=== PATIENT | female | born 1965 | race Caucasian/White ===

== ENCOUNTER → 2019-12-13 | Day surgery (SDC) | payer OTHER ==
[~2019-12-13] MED LIST: CRESTOR10 MG PO; CYMBALTA30 MG PO; FENTANYL CITRATE/PF 100MCG/2 ML INJ ONE; LUNESTA3 MG PO; MAGNESIUM PO; MIDAZOLAM HCL 2 MG/2 ML VIAL ONE; OR PHACO EYE KIT ONE; PANTOPRAZOLE SO40 MG PO; PREOP PHACO EYE KIT ONE; VALSARTAN-HCTZ1 EAC2 PO; VITAMIN D35000 UNI2 PO
[2019-12-13 13:30] VITALS: BP 140/86
== END | disposition home or self-care (01) ==
LOC: OR 10:41
PROVIDERS: ATTEND Ophthalmology
DX: H25.11 Age-related nuclear cataract, right eye (principal); I10 Essential (primary) hypertension; E78.00 Pure hypercholesterolemia, unspecified; F32.9 Major depressive disorder, single episode, unspecified; F41.9 Anxiety disorder, unspecified
CPT/HCPCS: 66984; J2250; J3010

== ENCOUNTER → 2020-02-28 | Day surgery (SDC) | payer OTHER ==
--- OUTSIDE RECORDS SUMMARY | 2020-02-28 10:17 | XMS REPORT | Clinical Summary ---
Author Author Sebastien [facility] Organization [facility] Address Unknown Phone Unavailable Care Team Providers Care Segment Block Layer Name Role Phone Iveth Medel MD PCP Allergies Comments Active Allergy Reactions Severity Noted Date No Known Drug Allergies 02/29/2016 Medications End Date Status Medication Sig Dispensed Refills Start Date Active cholecalciferol, vitamin Vitamin D3 0 10/18 D3, 5,000 unit tablet 5,000 unit 2 tablet Active aspirin (ECOTRIN) 81 MG Take 81 mg by 0 enteric coated tablet mouth daily. Active QNASL 80 mcg/actuation 2 sprays by 29.1 g 3 HFA aerosol inhaler Each Nare 7 route once daily. Active PROAIR RESPICLICK 90 INHALE 1 TO 2 2 each 0 mcg/actuation aerosol PUFFS EVERY 6 7 powdr breath activated HOURS NEEDED DIRECTED Active pantoprazole (PROTONIX) TAKE 1 TABLET 90 tablet 2 40 MG EC tablet (40 MG TOTAL) 9 BY MOUTH ONCE DAILY. Active DULoxetine (CYMBALTA) 60 TAKE 1 90 capsule 1 1 MG capsule CAPSULE BY 9 MOUTH EVERY MORNING Active valsartan-hydrochlorothia TAKE 1 TABLET 90 tablet 1 zide (DIOVAN-HCT) BY MOUTH 0 160-12.5 mg per tablet EVERY DAY Active rosuvastatin (CRESTOR) 10 TAKE 1 TABLET 90 tablet 1 MG tablet BY MOUTH 0 EVERY DAY 01/08/2021 Active buPROPion XL (Wellbutrin Take 1 tablet 30 tablet 5 XL) 150 MG 24 hr tablet (150 mg 0 total) by mouth daily. 06/03/2019 Discontinued metFORMIN (GLUMETZA) 1000 TAKE 2 0 MG (MOD) 24 hr tablet TABLETS BY MOUTH EVERY DAY 04/03/2019 Discontinued (Reorder) valsartan-hydrochlorothia TAKE 1 TABLET 90 tablet 1 zide (DIOVAN-HCT) 320-25 BY MOUTH ONCE 8 mg per tablet DAILY. 03/15/2019 Discontinued (Reorder) rosuvastatin (CRESTOR) 10 Take 1 tablet 90 tablet 0 MG tablet (10 mg total) 9 by mouth once daily. 05/26/2019 Discontinued (Reorder) DULoxetine (CYMBALTA) 60 TAKE 1 90 capsule 0 0 MG capsule CAPSULE BY 9 MOUTH EVERY MORNING 05/26/2019 Discontinued (Reorder) pantoprazole (PROTONIX) TAKE 1 TABLET 90 tablet 0 40 MG EC tablet (40 MG TOTAL) 9 BY MOUTH ONCE DAILY. 06/14/2019 Discontinued (Reorder) rosuvastatin (CRESTOR) 10 TAKE 1 TABLET 90 tablet 0 MG tablet BY MOUTH 9 EVERY DAY 04/20/2019 eszopiclone (LUNESTA) 3 TAKE 1 TABLET 30 tablet 2 mg tablet BY MOUTH 9 EVERYDAY AT BEDTIME 06/03/2019 Discontinued valsartan-hydrochlorothia TAKE 1 TABLET 90 tablet 1 zide (DIOVAN-HCT) 320-25 BY MOUTH ONCE 9 mg per tablet DAILY. 08/22/2019 Discontinued (Reorder) pantoprazole (PROTONIX) TAKE 1 TABLET 90 tablet 0 40 MG EC tablet (40 MG TOTAL) 9 BY MOUTH ONCE DAILY. 08/30/2019 Discontinued (Reorder) DULoxetine (CYMBALTA) 60 TAKE 1 90 capsule 0 0 MG capsule CAPSULE BY 9 MOUTH EVERY MORNING 06/03/2019 Discontinued (Reorder) eszopiclone (LUNESTA) 3 TAKE 1 TABLET 2 mg tablet BY MOUTH 9 EVERYDAY AT BEDTIME 12/12/2019 Discontinued valsartan-hydrochlorothia Take 1 tablet 90 tablet 1 zide (DIOVAN-HCT) by mouth 9 160-12.5 mg per tablet daily. 07/04/2019 eszopiclone (LUNESTA) 3 TAKE 1 TABLET 30 tablet 3 mg tablet BY MOUTH 9 EVERYDAY AT BEDTIME 12/12/2019 Discontinued rosuvastatin (CRESTOR) 10 TAKE 1 TABLET 90 tablet 1 06/14/201 MG tablet BY MOUTH 9 EVERY DAY 10/26/2019 eszopiclone (LUNESTA) 3 TAKE 1 TABLET 30 tablet 2 201 mg tablet BY MOUTH 9 EVERY AT BEDTIME. 01/22/2020 eszopiclone (LUNESTA) 3 TAKE 1 TABLET 30 tablet 2 202 mg tablet BY MOUTH 0 EVERY AT BEDTIME. Active Problems Problem Noted Date Anxiety state 02/29/2016 Disorder of vitamin B12 02/29/2016 Excess or deficiency of vitamin D 02/29/2016 Hypercholesteremia 02/29/2016 Hyperglycemia 02/29/2016 Benign essential HTN 02/08/2013 Depression 12/17/2011 Encounters Care Team Description Date Type Specialty Jeffery Corea III, MD Trigger little finger of left hand (Prim radha Dx) 01/10/2020 Office Visit Orthopedic Surgery Iveth Medel MD Depression with anxiety (Primary Dx); Hand pain, left 01/09/2020 Telemedicine Family Medicine 01/09/2020 Travel Iveth Medel MD 12/23/2019 Refill Family Iveth Be MD 12/11/2019 Refill Family Iveth Be MD 12/07/2019 Orders Only Family Medicine Iveth Medel MD Cataract of right eye, unspecified catar act type (Primary Dx); Pre-op examination; Encounter for general health examination; Benign essential HTN; Hypercholesteremia; Anxiety state 12/06/2019 Office Visit Family Iveth Be MD 09/25/2019 Refill Family Medicine Iveth Medel MD 08/30/2019 Refill Family Iveth Be MD 08/22/2019 Refill Family Iveth Be MD 06/14/2019 Refill Family Iveth Be MD Encounter for general health examination (Primary Dx) 06/03/2019 Office Visit Iveth Thomson MD 05/26/2019 Refill Family Iveth Be MD 04/03/2019 Refill Family Iveth Be MD 03/22/2019 Refill Family Iveth Be., MD 03/19/2019 Refill Family Medicine Iveth Medel MD 03/15/2019 Refill Family Medicine after 02/27/2019 Family History Medical History Relation Name Comments Sleep apnea Brother Hyperlipidemia Father Hypertension Father Breast cancer Maternal Grandmother Breast cancer Mother Pat Cancer Mother Pat from b reast cancer 03/2002 age 56 Relation Name Status Comments Brother Father Maternal Grandmother Mother Pat Social History Date Tobacco Use Types Packs/Day Years Used Never Smoker 0 0 Smokeless Tobacco: Never Used Drinks/Week oz/Week Comments Alcohol Use No Sex Assigned at Date Recorded Female 01/09/2020 5:47 PM CDT Industry Job Start Date Occupation Not on file Not on file Not on file Travel End Travel History Travel Start No recent travel history available. Last Filed Vital Signs Reading Time Taken Comments Vital Sign 118/74 12/06/2019 10:29 AM [employer] Blood Pressure 85 12/06/2019 10:29 AM [employer] Pulse - - Temperature 16 12/06/2019 10:29 AM [employer] Respiratory Rate 98% 12/06/2019 10:29 AM [employer]PER[employer] Oxygen Saturation - - Inhaled Oxygen Concentration 83.5 kg (184 lb) 01/10/2020 9:46 AM CDT Weight 163.8 cm (5' 4.5") 01/10/2020 9:46 AM CDT Height 31.1 01/10/2020 9:46 AM CDT Body Mass Index Plan of Treatment Health Maintenance Due Date Last Done Comments CERVICAL CANCER SCREENING 1987 BREAST CANCER SCREENING 2016 04/10/2014, 04/04/2014, 03/20/2014, Additional history exists COLONOSCOPY SCREENING 2016 SHINGLES VACCINES (#1) 2016 INFLUENZA VACCINE 05/12/2020 Procedures Comments Procedure Name Priority Date/Time Associated Diag nosis PA INJECT TENDON Routine 01/10/2020 Trigger littl e finger of SHEATH/LIGAMENT 9:40 AM CDT left hand PT AND PTT Routine 12/07/2019 6:34 AM [employer] ECG 12-LEAD Routine 12/06/2019 Pre-op examinat ion 11:33 AM [employer] O[employer] CBC WITH PLATELET AND Routine 12/06/2019 Pre-op e xamination DIFFERENTIAL 10:51 AM [employer] Encounter for gener al health examination FERRITIN LEVEL Routine 06/03/2019 Encounter for g eneral 9:32 AM CDT health examination VITAMIN B12 LEVEL Routine 06/03/2019 Encounter fo r general 9:32 AM CDT health examination VITAMIN D 25 HYDROXY Routine 06/03/2019 Encounter for general LEVEL 9:32 AM CDT health examination THYROID STIMULATING Routine 06/03/2019 Encounter for general HORMONE 9:32 AM CDT health examination LIPID PANEL Routine 06/03/2019 Encounter for g eneral 9:32 AM CDT health examination HEMOGLOBIN A1C Routine 06/03/2019 Encounter for g eneral 9:32 AM CDT health examination COMPREHENSIVE METABOLIC Routine 06/03/[address] for general PANEL 9:32 AM CDT health examination CBC WITH PLATELET AND Routine 06/03/2019 Encounte r for general DIFFERENTIAL 9:32 AM CDT health examination after 02/27/2019 Results * Hand/Upper Extremity Injection/Arthrocentesis: L small finger (01/10/2020 9:40 AM CDT) Narrative Performed At Jeffery Corea III, MD 2019 10:51 AM Hand/Upper Extremity Injection/Arthroce ntesis: L small finger Date/Time: 01/10/2020 10:50 AM Consent given by: patient Site marked: site marked Timeout: Immediately prior to procedure a time out was called to verify the correct patient, procedure, equipme nt, media production support manager and site/side marked as required Supporting Documentation Indications: pain and therapeutic Procedure Details Site: L small finger Location: - Small flexor pulleys: Volar aspect. Preparation: Patient was prepped and dr leticia in the usual sterile fashion Left side: Needle size: 25 G Left small finger medications administe red: 40 mg methylPREDNISolone acetate 40 mg/mL; 0.5 mL lidocaine 10 m g/mL (1 %) Patient tolerance: patient tolerated th e procedure well with no immediate complications (Band aid was applied) Injection Type: tendon sheathPlatelet R ich Plasma Used: no PRP Used Fluoroscopic Needle Guidance Used: no f luoroscopic needle guidance * PT and PTT (12/07/2019 6:34 AM DEHYDRATION PLANT OPERATOR) PTT 30 22 - 34 sec [facility] Comment: DIAGNOSTICS This test has not been [place] validated for monitoring unfractionated heparin therapy. For testing that is validated for this type of therapy, please refer to the Heparin Anti-Xa assay (test code 59142). For additional information, please refer to http://education.Sense of Skin.Sureline Systems/faq/RIW538 (This link is being provided for informational/educational purposes only.) INR 0.9 [facility] Comment: DIAGNOSTICS Reference Range [place] 0.9-1.1 Moderate-intensity Warfarin Therapy 2.0-3.0 Higher-intensity Warfarin Therapy 3.0-4.0 Prothrombin 9.7 9.0 - 11.5 sec [facility] time Comment: DIAGNOSTICS NO COLLECTION DATE RECEIVED. [place] WE HAVE USED THE DATE THE SPECIMEN WAS RECEIVED BY THIS LABORATORY THE COLLECTION DATE. IF THIS IS INCORRECT, PLEASE CONTACT CLIENT SERVICES. PHONE NUMBER: [phone] Specimen Narrative Performed At FASTING: UNKNOWN [facility] Resulting Agency Comment Performing Organization Information: Site ID: [id number] Name: [facility] Address: [address] [place] [id number] Director: Johny Burnett Performing Organization Address [facility] one Number [facility] [place] [address] [place] [phone] * ECG 12 lead (12/06/2019 11:33 AM DEHYDRATION PLANT OPERATOR) Ventricular 77 [facility] MUSE rate Atrial rate 77 [facility] M[facility] PA interval 144 [facility] M[facility] QRSD interval 104 [facility] M[facility] QT interval 398 [facility] MUSE QTC interval 450 [facility] M[facility] P axis 1 35 [facility] MUSE QRS axis 1 22 [facility] MUSE T wave axis 52 [facility] MUSE EKG impression Normal sinus rhythm-Possible HM MUSE Inferior infarct , age undetermined-Abnormal ECG-No previous ECGs available- Specimen Narrative Performed At This result has an attachment that is n ot available. Performing Organization Address [facility]/State/Zipcode Ph one Number [facility] [address] [place] [address] * CBC with platelet and differential (12/06/2019 10:51 AM DEHYDRATION PLANT OPERATOR) Only the most recent of 2 results within the time period is included. Pathologist [facility] [place] WBC 7.9 3.8 - 10.8 [facility] Thousand/uL [facility] [place] RBC 4.89 3.80 - 5.10 [facility] Million/uL [facility] [place] HGB 13.3 11.7 - 15.5 g/dL [facility] [place] HCT 41.1 35.0 - 45.0 % [facility] [place] MCV 84.0 80.0 - 100.0 fL [facility] [place] MCH 27.2 27.0 - 33.0 pg [facility] [place] MCHC 32.4 32.0 - 36.0 g/dL [facility] [place] RDW 13.6 11.0 - 15.0 % [facility] [place] Platelet count 453 (H) 140 - 400 [facility] Thousand/uL [facility] [place] MPV 9.6 7.5 - 12.5 fL [facility] [place] Neutrophils, 5,293 1,500 - 7,800 [facility] absolute cells/uL [facility] [place] Lymphocytes, 1,959 850 - 3,900 cells/uL [facility] absolute [facility] [place] Monocytes, 529 200 - 950 cells/uL [facility] absolute [facility] [place] Eosinophils, 71 15 - 500 cells/uL [facility] absolute [facility] [place] Basophils, 47 0 - 200 cells/uL [facility] absolute [facility] [place] Neutrophils 67 % [facility] [place] Lymphocytes 24.8 % [facility] [place] Monocytes 6.7 % [facility] [place] Eosinophils 0.9 % [facility] [place] Basophils + RC 0.6 % [facility] [place] Specimen Resulting Agency Comment Performing Organization Information: Site ID: [id number] Name: [facility] Address: [address] [place] [id number] Director: Johny Burnett Performing Organization Address City/State/Zipcode Ph one Number [facility] [address] [phone] * Vitamin D 25 hydroxy level (06/03/2019 9:32 AM CDT) Pathologist [facility] [place] Vitamin D, 63 30 - 100 ng/mL [facility] 25-hydroxy Comment: DIAGNOSTICS Vitamin D Status [place] 25-OH Vitamin D: Deficiency: <20 ng/mL Insufficiency: 20 - 29 ng/mL Optimal: > or = 30 ng/mL For 25-OH Vitamin D testing on patients on D2-supplementation and patients for whom quantitation of D2 and D3 fractions is required, the QuestAssureD(TM) 25-OH VIT D, (D2,D3), LC/MS/MS is recommended: order code 88241 (patients >2yrs). For more information on this test, go to: http://education.Shoulder Tap/faq/YXB171 (This link is being provided for informational/educational purposes only.) Specimen Resulting Agency Comment Performing Organization Information: Site ID: [id number] Name: [facility] Address: [address] [place] [id number] Director: Johny Burnett Performing Organization Address [facility] one Number [employer] [place] [phone] * Thyroid stimulating hormone (06/03/2019 9:32 AM CDT) TSH 1.34 mIU/L [facility] Comment: DIAGNOSTICS Reference Range T[place] > or = 20 Years 0.40-4.50 Ranges First trimester 0.26-2.66 Second trimester 0.55-2.73 Third trimester 0.43-2.91 Specimen Resulting Agency Comment Performing Organization Information: Site ID: [id number] Name: [facility] Address: [address] [place] [phone] Director: Johny Burnett Performing Organization Address [facility] one Number [employer] [place] [phone] * Hemoglobin A1c (06/03/2019 9:32 AM CDT) Hemoglobin A1C 5.4 <5.7 % of total Hgb [facility] Comment: DIAGNOSTICS For the purpose of screening [place] for the presence of diabetes: <5.7% Consistent with the absence of diabetes 5.7-6.4% Consistent with increased risk for diabetes (prediabetes) > or =6.5% Consistent with diabetes This assay result is consistent with a decreased risk of diabetes. Currently, no consensus exists regarding use of hemoglobin A1c for diagnosis of diabetes in children. According to [place] Diabetes Association (ADA) guidelines, hemoglobin A1c <7.0% represents optimal control in non- diabetic patients. Different metrics may apply to specific patient populations. Standards of Medical Care in Diabetes(ADA). Specimen Resulting Agency Comment Performing Organization Information: Site ID: [id number] Name: [facility] Address: [address] [place] [phone] Director: Johny Burnett Performing Organization Address [facility] one Number [facility] [place] [address] [place] [address] 72 * Ferritin level (06/03/2019 9:32 AM CDT) Ferritin level 11 (L) 16 - 232 ng/mL [facility] [place] Specimen Resulting Agency Comment Performing Organization Information: Site ID: [facility]: [facility] Address: [address] [place] [phone] Director: Johny Burnett Performing Organization Address [facility] one Number [facility] [place] [address] [place] [address] 72 * Vitamin B12 level (06/03/2019 9:32 AM CDT) Vitamin B12 >2000 (H) 200 - 1100 pg/mL [facility] [place] Specimen Resulting Agency Comment Performing Organization Information: Site ID: [id number] [facility]: [facility] Address: [address] [place] [phone] Director: Johny Burnett Performing Organization Address [facility] one Number [facility] [place] [address] [place] [address] 72 * Lipid panel (06/03/2019 9:32 AM CDT) Cholesterol, 188 <200 mg/dL [facility] total [facility] [place] HDL cholesterol 50 (L) >50 mg/dL [facility] [place] Triglycerides 107 <150 mg/dL [facility] [place] LDL cholesterol 117 (H) mg/dL (calc) [facility] calculated Comment: DIAGNOSTICS Reference range: <100 [place] Desirable range <100 mg/dL for primary prevention; <70 mg/dL for patients with CHD or diabetic patients with > or = 2 CHD risk factors. LDL-C is now calculated using the Nick calculation, which is a validated novel method providing better accuracy than the Friedewald equation in the estimation of LDL-C. Kolton SS et al. GRAEME. 2013;310(19): 9379-6967 (http://education.Hark.com/faq/BJE923) Cholesterol/HDL 3.8 <5.0 (calc) [facility] ratio [facility]AGNOSTICS [place] Non-HDL 138 (H) <130 mg/dL (calc) [facility] cholesterol Comment: DIAGNOSTICS For patients with diabetes [place] plus 1 major ASCVD risk factor, treating to a non-HDL-C goal of <100 mg/dL (LDL-C of <70 mg/dL) is considered a therapeutic option. Specimen Resulting Agency Comment Performing Organization Information: Site ID: [id number] Name: [facility] Address: [address] [place] [phone] Director: Johny Burnett Performing Organization Address City/State/Zipcode Ph one Number [facility] [place] [address] [place] [phone] * Comprehensive metabolic panel (06/03/2019 9:32 AM CDT) Glucose 89 65 - 99 mg/dL [facility] Comment: DIAGNOSTICS Fasting [place] reference interval BUN 18 7 - 25 mg/dL [facility] [place] Creatinine 0.77 0.50 - 1.05 mg/dL [facility] Comment: DIAGNOSTICS For patients >49 years of age, [place] the reference limit for Creatinine is approximately 13% higher for people identified as -[place]. EGFR Non-Afr. 88 > OR = 60 [facility] [place] mL/min/1.73m2 [facility] EGFR 102 > OR = 60 [facility] [place] mL/min/1.73m2 [facility] BUN/creatinine NOT APPLICABLE 6 - 22 (calc) [facility] ratio [facility] [place] Sodium 139 135 - 146 mmol/L [facility] [place] Potassium 4.1 3.5 - 5.3 mmol/L [facility] [place] Chloride 99 98 - 110 mmol/L [facility] [place] CO2 27 20 - 32 mmol/L [facility] [place] Calcium 9.9 8.6 - 10.4 mg/dL [facility] [place] Protein 7.0 6.1 - 8.1 g/dL [facility] [place] Albumin, S 4.5 3.6 - 5.1 g/dL [facility] [place] Globulin, total 2.5 1.9 - 3.7 g/dL [facility] (calc) [facility] [place] Albumin/globuli 1.8 1.0 - 2.5 (calc) [facility] n ratio [facility]AGNOSTICS [place] Total bilirubin 0.3 0.2 - 1.2 mg/dL [facility] [place] Alkaline 73 33 - 130 U/L [facility] phosphatase [facility] [place] AST 16 10 - 35 U/L [facility] [place] ALT 21 6 - 29 U/L [facility] [place] Specimen Resulting Agency Comment Performing Organization Information: Site ID: [id number]: [facility] Address: [address] [place] [phone] Director: Johny Burnett Performing Organization Address City/State/Zipcode Ph one Number [facility] [place] [address] [place] [phone] 72 after 02/27/2019 Insurance Type Payer Benefit Subscriber ID Effective Phone Address Plan / Dates Group POS AETNA AETNA xxxxxxxxxx [id number] [facility] POS Advance Directives For more information, please contact: [phone] Patient Lead Former Explanation Type Date Recorded Advance Directives, Living Will and Medical Power of Carpenter Mate
--- OUTSIDE RECORDS SUMMARY | 2020-02-28 10:18 | XMS REPORT ---
Author Author [facility] t Organization [facility] Address [address] [place] [address] Phone Unavailable Care Team Providers Care Damper Fitter Name Role Phone Yarely Medel MD PCP Nahomy GILES, Chase Jeffery Attphys Yarely Medel MD Attphys Payers Payer Name Policy Type Policy Number Effective Date Expiration Date S deonna ZAMORATNAJARAD DRISCOLL [facility] [id number] xxxxxxxxxx 2016 00:00:00 Sebastien Holman Problems Condition Name Condition Details Condition Category Status Onset Date Resolution Date Last Treatment Date Treating Clinician Comments Source Anxiety state Anxiety state Disease Active 2016-02-29 00:00:00 Sebastien Holman 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 Family History Family Member Diagnosis Comments Start Date Stop Date Source Natural brother Sleep apnea Sebastien Holman Natural father Hyperlipidemia [place] Natural father Hypertension Sebastien Holman Maternal grandmother Breast cancer [place] Natural mother Breast cancer Sebastien Holman Natural mother Cancer [facility] Social History Social Habit Start Date Stop Date Quantity Comments Source Sex Assigned At [place] [facility] Alcohol intake 2020-01-10 00:00:00 2020-01-10 00:00:00 Current non-drinker of alcohol (finding) Sebastien Holman Smoking Status Start Date Stop Date Source Never smoker Sebastien marshall Medications Ordered Medication Name Filled Medication Name Start Date Stop Da te Current Medication? Ordering Clinician Indication Dosage Frequency Signature (SIG) Comments Components Source buPROPion XL (Wellbutrin XL) 150 MG 24 hr tablet 2020-01-09 00:00:00 2021-01-09 04:59:00 Yes 150mg QD Take 1 tablet (150 mg total) by mouth daily. Sebastien Holman eszopiclone (LUNESTA) 3 mg tablet 2019-12-23 00:00:00 2019 04:59:00 No TAKE 1 TABLET BY MOUTH EVERY AT BEDTIME. Sebastien Holman valsartan-hydrochlorothiazide (DIOVAN-HCT) 160-12.5 mg per t ablet 2019-12-12 00:00:00 Yes TAKE 1 TABLET BY MOUTH EVERY DAY Sebastien Holman rosuvastatin (CRESTOR) 10 MG tablet 2019-12-12 00:00:00 Yes TAKE 1 TABLET BY MOUTH EVERY DAY Sebastien helton eszopiclone (LUNESTA) 3 mg tablet 2019-09-26 00:00:00 2019 05:59:00 No TAKE 1 TABLET BY MOUTH EVERY AT BEDTIME. Sebastien Holman DULoxetine (CYMBALTA) 60 MG capsule 2019-08-30 00:00:00 Yes TAKE 1 CAPSULE BY MOUTH EVERY MORNING Sebastien Roy ethmadisyn pantoprazole (PROTONIX) 40 MG EC tablet 2019-08-22 00:00:00 Yes 40mg QD TAKE 1 TABLET (40 MG TOTAL) BY MOUTH ONCE DAILY. Sebastien Holman rosuvastatin (CRESTOR) 10 MG tablet 2019-06-14 00:00:0 0 2019-12-12 00:00:00 No TAKE 1 TABLET BY MOUTH EVERY DAY Sebastien Holman metFORMIN (GLUMETZA) 1000 MG (MOD) 24 hr tablet 2019-06-03 14:19:47 2019-06-03 00:00:00 No TAKE 2 TABLETS BY MOUTH EVERY D ESAU Holman valsartan-hydrochlorothiazide (DIOVAN-HCT) 160-12.5 mg per t ablet 2019-06-03 00:00:00 2019-12-12 00:00:00 No 1{tbl} QD Take 1 tablet by mouth daily. Sebastien Holman eszopiclone (LUNESTA) 3 mg tablet 2019-06-03 00:00:00 2018 04:59:00 No TAKE 1 TABLET BY MOUTH EVERYDAY AT [facility] Sebastien Holman DULoxetine (CYMBALTA) 60 MG capsule 2019-05-26 00:00:0 0 2019-08-30 00:00:00 No TAKE 1 CAPSULE BY MOUTH EVERY MORNING Sebastien Holman pantoprazole (PROTONIX) 40 MG EC tablet 00:00:00 2019-08-22 00:00:00 No 40mg QD TAKE 1 TABLET (40 MG TOTAL) BY MOUTH ONCE DAILY. Sebastien Holman eszopiclone (LUNESTA) 3 mg tablet 2019-05-24 00:00:00 2018 00:00:00 No TAKE 1 TABLET BY MOUTH EVERYDAY AT [facility] Sebastien Holman valsartan-hydrochlorothiazide (DIOVAN-HCT) 320-25 mg per tab let 2019-04-04 00:00:00 2019-06-03 00:00:00 No 1{tbl} QD TAKE 1 TABLET BY MOUTH ONCE DAILY. Sebastien Holman eszopiclone (LUNESTA) 3 mg tablet 2019-03-21 00:00:00 2018 04:59:00 No TAKE 1 TABLET BY MOUTH EVERYDAY AT [facility] Sebastien Holman rosuvastatin (CRESTOR) 10 MG tablet 2019-03-15 00:00:0 0 2019-06-14 00:00:00 No TAKE 1 TABLET BY MOUTH EVERY DAY Sebastien Holman DULoxetine (CYMBALTA) 60 MG capsule 2019-02-24 00:00:0 0 2019-05-26 00:00:00 No TAKE 1 CAPSULE BY MOUTH EVERY MORNING Sebastien Holman pantoprazole (PROTONIX) 40 MG EC tablet 00:00:00 2019-05-26 00:00:00 No 40mg QD TAKE 1 TABLET (40 MG TOTAL) BY MOUTH ONCE DAILY. Sebastien Homlan rosuvastatin (CRESTOR) 10 MG tablet 2018-12-22 00:00:0 0 2019-03-15 00:00:00 No 10mg QD Take 1 tablet (10 mg total) by mouth onc e daily. Sebastien Holman valsartan-hydrochlorothiazide (DIOVAN-HCT) 320-25 mg per tab let 2018-10-01 00:00:00 2019-04-03 00:00:00 No 1{tbl} QD TAKE 1 TABLET BY MOUTH ONCE DAILY. Sebastien Holman QNASL 80 mcg/actuation HFA aerosol inhaler 2017-06-04 00:00:00 Yes 2{spray} QD 2 sprays by Each Nare route once daily. Sebastien Holman PROAIR RESPICLICK 90 mcg/actuation aerosol powdr breath acti vated 2017-06-04 00:00:00 Yes INHALE 1 TO 2 PUFFS ALEX RY 6 HOURS NEEDED DIRECTED Sebastien Holman aspirin (ECOTRIN) 81 MG enteric coated tablet 2016-06-05 14:01:2 6 Yes 81mg QD Take 81 mg by mouth daily. H sharlene Holman cholecalciferol, vitamin D3, 5,000 unit tablet 2011-10-18 00:00: 00 Yes Vitamin D3 5,000 unit tablet Sebastien Holman Vital Signs Vital Name Observation Time Observation Value Comments Source Body height 2020-01-10 14:46:00 163.8 cm Sebastien Holman Body weight 2020-01-10 14:46:00 83.462 kg Sebastien Holman BMI 2020-01-10 14:46:00 31.10 kg/m2 Sebastien Holman Systolic blood pressure 2019-12-06 16:29:00 118 mm[Hg] Sebastien Holman Diastolic blood pressure 2019-12-06 16:29:00 74 mm[Hg] Sebastien Holman Heart rate 2019-12-06 16:29:00 85 /min Sebastien Holman Respiratory rate 2019-12-06 16:29:00 16 /min Leslee Holman Oxygen saturation in Arterial blood by Pulse oximetry 12-06 16:29:00 98 /min Sebastien Holman Procedures Procedure Date / Time Performed Performing Clinician Sour e [place] INJECT TENDON SHEATH/LIGAMENT 2020-01-10 14:40:00 Luis Villagomez PT AND PTT 2019-12-07 12:34:00 Iveth Medel ECG 12-LEAD 2019-12-06 17:33:57 Iveth Medel CBC WITH PLATELET AND DIFFERENTIAL 2019-12-06 16:51:00 Iveth Medel CBC WITH PLATELET AND DIFFERENTIAL 2019-06-03 14:32:00 Iveth Medel COMPREHENSIVE METABOLIC PANEL 2019-06-03 14:32:00 Sudha Medel HEMOGLOBIN A1C 2019-06-03 14:32:00 Iveth Medel LIPID PANEL 2019-06-03 14:32:00 Iveth Medel THYROID STIMULATING HORMONE 2019-06-03 14:32:00 Sofiya Medel VITAMIN D 25 HYDROXY LEVEL 2019-06-03 14:32:00 Iveth Medel VITAMIN B12 LEVEL 2019-06-03 14:32:00 Iveth Medel [facility] FERRITIN LEVEL 2019-06-03 14:32:00 Iveth Medel Plan of Care Planned Activity Planned Date Details Comments Source Future Scheduled Test 2020-05-12 00:00:00 INFLUENZA VACCINE [code = INFLUENZA VACCINE] [facility] Future Scheduled Test 2016 00:00:00 BREAST CANCER SCRE ENING [code = BREAST CANCER SCREENING] [facility] Future Scheduled Test 2016 00:00:00 COLONOSCOPY SCREEN ING [code = COLONOSCOPY SCREENING] [facility] Future Scheduled Test 2016 00:00:00 SHINGLES VACCINES (#1) [code = SHINGLES VACCINES (#1)] [facility] Future Scheduled Test 1987 00:00:00 Screening for reed gnant neoplasm of cervix (procedure) [code = 348923465] [facility] t Encounters Start Date/Time End Date/Time Encounter Type Admission Type [facility] Care Department Encounter ID Source 2020-01-10 00:00:00 2020-01-10 00:00:00 Outpatient SHAQUILLE VILLAGOMEZ [facility] [id number] [place] [facility] 2020-01-09 00:00:00 2020-01-09 00:00:00 Outpatient JAIME MEDEL [facility] [id number] Sebastien Holman 2019-12-06 00:00:00 2019-12-06 00:00:00 Outpatient JAIME MEDEL [facility] [id number] Sebastien Holman Results Test Description Test Time Test Comments Results Result Comments Source Hand/Upper Extremity Injection/Arthrocentesis: L small finger 2020-01-10 14:40:00 Jeffery Villagomez III, MD 01/10/2020 10:51 AMHand/Upper Extremity Injection/Arthrocentesis: L small fingerDate/Time: 01/10/2020 10:50 AMConsent given by: patientSite marked: site markedTimeout: Immediately prior to procedure a time out was called to verify the correct patient, procedure, equipment, field support rep and site/side marked as required Supporting DocumentationIndications: pain and therapeutic Procedure DetailsSite: L small finger Location: - Small flexor pulleys: Volar aspect. Preparation: Patient was prepped and draped in the usual sterile fashion Left side:Needle size: 25 GLeft small finger medications administered: 40 mg methylPREDNISolone acetate 40 mg/mL; 0.5 mL lidocaine 10 mg/mL (1 %)Patient tolerance: patient tolerated the procedure well with no immediate complications (Band aid was applied) Injection Type: tendon sheathPlatelet Rich Plasma Used: no PRP UsedFluoroscopic Needle Guidance Used: no fluoroscopic needle guidance Eleazar tomás Holman PT and PTT 2019-12-07 12:34:00 Test Item PTT (test code = 52962-4) 30 22- 34 sec T his test has not been validated for monitoringunfractionated heparin therapy. For testing thatis validated for this type of therapy, please referto the Heparin Anti-Xa assay (test code 74082). For additional information, please refer tohttp://education.SugarCRM.InEdge/faq/GBM034(This link is being provided for informational/educational purposes only.) INR (test code = 6301-6) 0.9 Ref erence Range 0.9-1.1Moderate-intensity Warfarin Therapy 2.0-3.0Higher-intensity Warfarin Therapy 3.0-4.0 Prothrombin time (test code = 5902-2) 9.7 9.0- 11.5 sec NO COLLECTION DATE RECEIVED. WE HAVE USEDTHE DATE THE SPECIMEN WAS RE[facility] THE COLLECTION DATE. IF THISIS INCORRECT, PLEASE CONTACT CLIENT SERVICES.PHONE NUMBER: [phone] MARIA A (test code = MARIA A) FASTING: UNKNOWN RAC (test code = RAC) Performing Organization Info rmation: Site ID: RGA Name: [facility] Address: [address] [place] [phone] Director: Johny Burnett [facility] with platelet and [id number] 10:33:00* Test Item Value Reference Range Interpretation Comments WBC (test code = 6690-2) 7.9 3.8- 10.8 Thousand/uL RBC (test code = 789-8) 4.89 3.80- 5.10 Million/uL HGB (test code = 718-7) 13.3 g/dL 11.7-15.5 HCT (test code = 4544-3) 41.1 % 35-45 MCV (test code = 787-2) 84.0 fL 80-100 MCH (test code = 785-6) 27.2 pg 27-33 MCHC (test code = 786-4) 32.4 g/dL 32-36 RDW (test code = 788-0) 13.6 % 11-15 Platelet count (test code = 777-3) 453 140- 400 Thousand/u L H MPV (test code = 776-5) 9.6 fL 7.5-12.5 Neutrophils, absolute (test code = 751-8) 5293 1,500 - 7,80 0 cells/uL Lymphocytes, absolute (test code = 731-0) 1959 850- 3,900 c ells/uL Monocytes, absolute (test code = 742-7) 529 200- 950 cells /uL Eosinophils, absolute (test code = 711-2) 71 15- 500 cell s/uL Basophils, absolute (test code = 704-7) 47 0- 200 cells/u L Neutrophils (test code = 770-8) 67 % Lymphocytes (test code = 736-9) 24.8 % Monocytes (test code = 5905-5) 6.7 % Eosinophils (test code = 713-8) 0.9 % Basophils + RC (test code = 706-2) 0.6 % RAC (test code = RAC) Performing Organization Info rmation: Site ID: RGA Name: [facility] Address: [address] [place] [address] Director: Johny Burnett Lab Interpretation (test code = 48160-2) Abnormal [place] [facility] 12 [id number] 16:50:07* Test Item Value Reference Range Interpretation Comments Ventricular rate (test code = 253) 77 Atrial rate (test code = 255) 77 [place] interval (test code = 266) 144 QRSD interval (test code = 260) 104 QT interval (test code = 264) 398 QTC interval (test code = 265) 450 P axis 1 (test code = 267) 35 QRS axis 1 (test code = 268) 22 T wave axis (test code = 270) 52 EKG impression (test code = 273) Normal sinus rhythm-P ossible Inferior infarct , age undetermined-Abnormal ECG-No previous ECGs available- [place] [facility] [id number] 20:11:00* Test Item Value Reference Range Interpretation Comments Glucose (test code = 2345-7) 89 mg/dL 65-99 Fasting reference interval BUN (test code = 3094-0) 18 mg/dL 7-25 Creatinine (test code = 2160-0) 0.77 mg/dL 0.5-1.05 For patients >49 years of age, the reference limitfor Creatinine is approximately 13% higher for peopleidentified as -[place]occan. EGFR Non-Afr. [place]occan (test code = 2775) 88 > OR = 60 mL /min/1.73m2 EGFR (test code = 92979-1) 102 > OR = 60 mL/min/1.73m2 BUN/creatinine ratio (test code = 3097-3) NOT APPLICABLE 6- 22 (cayetano c) Sodium (test code = 2951-2) 139 mmol/L 135-146 Potassium (test code = 2823-3) 4.1 mmol/L 3.5-5.3 Chloride (test code = 2075-0) 99 mmol/L 98-110 CO2 (test code = 2027-9) 27 mmol/L 20-32 Calcium (test code = 27257-4) 9.9 mg/dL 8.6-10.4 Protein (test code = 2885-2) 7.0 g/dL 6.1-8.1 Albumin, S (test code = 1751-7) 4.5 g/dL 3.6-5.1 Globulin, total (test code = 65792-0) 2.5 1.9- 3.7 g/dL (c alc) Albumin/globulin ratio (test code = 1759-0) 1.8 1.0- 2.5 ( calc) Total bilirubin (test code = 1974-2) 0.3 mg/dL 0.2-1.2 Alkaline phosphatase (test code = 6768-6) 73 U/L 33-130 AST (test code = 1920-8) 16 U/L 10-35 ALT (test code = 1742-6) 21 U/L 6-29 RAC (test code = RAC) Performing Organization Info rmation: Site ID: RGA Name: [facility] Address: [address] [place] [phone] Director: Johny Burnett [place] [facility] [id number] 20:11:00* Test Item Value Reference Range Interpretation Comments Cholesterol, total (test code = 2093-3) 188 mg/dL <200 HDL cholesterol (test code = 2085-9) 50 mg/dL >50 L Triglycerides (test code = 2571-8) 107 mg/dL <150 LDL cholesterol calculated (test code = 66004-1) 117 mg/dL (calc) H Reference range: <100 Desirable range <100 mg/dL for primary prevention; <70 mg/dL for patients with CHD or diabetic patients with > or = 2 CHD risk factors. LDL-C is now calculated using the Kolton-Lisette calculation, which is a validated novel method providing better accuracy than the Friedewald equation in the estimation of LDL-C. Kolton SS et al. GRAEME. 2013;310(19): 6014-5624 (http:/ /education.SugarCRM.InEdge/faq/KRB450) Cholesterol/HDL ratio (test code = 9830-1) 3.8 <5.0 (calc) Non-HDL cholesterol (test code = 96308-4) 138 <130 mg/dL ( calc) H For patients with diabetes plus 1 major ASCVD risk factor, treating to a non-HDL-C goal of <100 mg/dL (LDL-C of <70 mg/dL) is considered a therapeutic option. RAC (test code = RAC) Performing Organization Info rmation: Site ID: ZHEN Name: [facility] Address: [address] [place] [address] Director: Johny Burnett Lab Interpretation (test code = 82438-2) Abnormal [place] [facility]12 [id number] 20:11:00* Test Item Value Reference Range Interpretation Comments Vitamin B12 (test code = 2132-9) >2000 200-1100 H RAC (test code = RAC) Performing Organization Info rmation: Site ID: GEOFFA Name: [facility] Address: [address] [place] [address] Director: Johyn Burnett Lab Interpretation (test code = 19589-3) Abnormal [place] [facility] [id number] 20:11:00* Test Item Value Reference Range Interpretation Comments Ferritin level (test code = 2276-4) 11 ng/mL 16-232 L RAC (test code = RAC) Performing Organization Info rmation: Site ID: RGA Name: [facility] Address: [address] [place] [address] Director: Johny Burnett Lab Interpretation (test code = 47553-4) Abnormal [place] [facility] [id number] 20:11:00* Test Item Value Reference Range Interpretation Comments Hemoglobin A1C (test code = 4548-4) 5.4 <5.7 % of total Hg b For the purpose of screening for the presence ofdiabetes: <5.7% Consistent with the absence of diabetes5.7-6.4% Consistent with increased risk for diabetes (prediabetes)> or =6.5% Consistent with diabetes This assay result is consistent with a decreased riskof diabetes. Currently, no consensus exists regarding use ofhemoglobin A1c for diagnosis of diabetes in children. According to [place] Diabetes Association (ADA)guidelines, hemoglobin A1c <7.0% represents optimalcontrol in non- diabetic patients. Differentmetrics may apply to specific patient populations. Standards of Medical Care in Diabetes(ADA). RAC (test code = RAC) Performing Organization Info rmation: Site ID: GEOFFA Name: [facility] Address: [address] [place] [id number] Director: Johny HolmanThyroid stimulating [id number] 20:11:00* Test Item Value Reference Range Interpretation Comments TSH (test code = 3016-3) 1.34 mIU/L Reference Range > or = 20 Years 0.40-4.50 Ranges First trimester 0.26-2.66 Second trimester 0.55-2.73 Third trimester 0.43-2.91 RAC (test code = RAC) Performing Organization Info rmation: Site ID: GEOFFA Name: [facility] Address: [address] [place] [phone] Director: Johny Burnett [place] [facility] D 25 hydroxy [id number] 20:11:00* Test Item Value Reference Range Interpretation Comments Vitamin D, 25-hydroxy (test code = 1989-3) 63 ng/mL 30-100 Vitamin D Status 25-OH Vitamin D: Deficiency: <20 ng/mLInsufficiency: 20 - 29 ng/mLOptimal: > or = 30 ng/mL For 25-OH Vitamin D testing on patients on D2-supplementation and patients for whom quantitation of D2 and D3 fractions is required, the QuestAssureD(TM)25-OH VIT D, (D2,D3), LC/MS/MS is recommended: order code 23797 (patients >2yrs). For more information on this test, go to:http://education.ReDent Nova/faq/QQQ574(This link is being provided for informational/educational purposes only.) RAC (test code = RAC) Performing Organization Info rmation: Site ID: GEOFFA Name: [facility] Address: [address] [place] [phone] Director: Johny Holman
[2020-02-28 12:12] VITALS: BP 130/87
== END | disposition home or self-care (01) ==
LOC: OR 10:15
PROVIDERS: ATTEND Ophthalmology
DX: H25.12 Age-related nuclear cataract, left eye (principal); I10 Essential (primary) hypertension; Z01.812 Encounter for preprocedural laboratory examination; Z11.59 Encounter for screening for other viral diseases
CPT/HCPCS: 66984; 87635; J2250; J3010